=== PATIENT | male | born 1970 | race Hispanic/Latino ===

== ENCOUNTER 2017-01-05 00:13 | Emergency (ER) | payer MEDICAID ==
[2017-01-05 00:52] VITALS: BP 123/82; PULSE 78; RESP 17; TEMP 98; O2SAT 99
--- NOTE | 2017-01-05 00:54 | ED PDOC ---
Arrival/HPI <Bobo Romo - Last Filed: 01/05/17 01:37> <Gustavo Bravo - Last Filed: 01/05/17 05:31> - General Chief Complaint: Hip Pain Time Seen by Provider: 01/05/17 00:17 - History of Present Illness Narrative History of Present Illness (Text): 01/05/17 00:51 This patient is a 46yoM who states he is homeless, in and out of shelters, with supposed psych history, who is coming complaining of b/l hip pain that he's had since 2014. tangential speech. patient denies AV hallucinations or wish to hurt himself or others. States that "people have done very bad things to me and medications are poisoning me". is able to ambulate without problem and is requesting food. Denies fevers/chills, LOU, CP, SOB, abdominal pain, n/V/d, dysuria/freq/urg, or lower extremity pain/swelling. (Gustavo Bravo) Past Medical History <Bobo Romo - Last Filed: 01/05/17 01:37> - Provider Review Nursing Documentation Reviewed: Yes - Travel History Have you recently traveled outside [place] w/in the past 3 mons?: No - Past History Past History: No Previous - Infectious Disease Hx of Infectious Diseases: None - Psychiatric Hx Substance Use: No - Anesthesia Hx Anesthesia: No <Gustavo Bravo - Last Filed: 01/05/17 05:31> - Patient History Narrative Patient History: psych history; not discernable, likely bipolar disorder (Gustavo Bravo) Family/Social History - Physician Review Nursing Documentation Reviewed: Yes Family/Social History: No Known Family HX Smoking Status: Light Smoker < 10 Cigarettes Daily Hx Alcohol Use: No Hx Substance Use: No <Gustavo Bravo - Last Filed: 01/05/17 05:31> Allergies/Home Meds <Bobo Romo - Last Filed: 01/05/17 01:37> <Gustavo Bravo - Last Filed: 01/05/17 05:31> Allergies/Adverse Reactions: Allergies bee pollen Allergy (Verified 01/05/17 00:26) ANAPHYLAXIS bee venom protein (honey bee) Allergy (Verified 01/05/17 00:26) ANAPHYLAXIS Home Medications: Home Meds Medication Instructions Recorded Confirmed No Known Home Med 01/05/17 01/05/17 Review of Systems - Review of Systems Constitutional: Fatigue. absent: Weight Change Eyes: absent: Vision Changes, Photophobia ENT: absent: Hearing Changes, Tinnitus Respiratory: absent: SOB, Cough Cardiovascular: absent: Chest Pain, Palpitations Gastrointestinal: absent: Abdominal Pain, Stool Changes, Hematochezia Genitourinary Male: absent: Dysuria, Frequency Musculoskeletal: Arthralgias, Back Pain Skin: absent: Rash, Pruritis Neurological: absent: Headache, Dizziness Endocrine: absent: Diaphoresis Hemo/Lymphatic: absent: Adenopathy Psychiatric: absent: Anxiety <Gustavo Bravo - Last Filed: 01/05/17 05:31> Physical Exam Temperature: Afebrile Blood Pressure: Normal Pulse: Regular Respiratory Rate: Normal Appearance: Positive for: Well-Appearing Pain Distress: Mild Mental Status: Positive for: Alert and Oriented X 3 - Systems Exam Head: Present: Atraumatic Pupils: Present: PERRL Extroacular Muscles: Present: EOMI Conjunctiva: Present: Normal Mouth: Present: Moist Mucous Membranes Pharnyx: No: ERYTHEMA Neck: Present: Normal Range of Motion. No: Meningeal Signs Respiratory/Chest: Present: Clear to Auscultation, Good Air Exchange Cardiovascular: Present: Regular Rate and Rhythm, Normal S1, S2. No: Murmurs Abdomen: No: Tenderness, Distention Back: No: CVA Tenderness Upper Extremity: Present: Normal Inspection. No: Cyanosis, Edema Lower Extremity: Present: Normal Inspection. No: Edema Neurological: Present: GCS=15, CN II-XII Intact. No: Speech Normal (pressured ) Skin: Present: Warm Psychiatric: Present: Alert, Oriented x 3, Delusional. No: Normal Insight, Normal Affect, Normal Mood, Suicidal Ideation, Homicidal Ideation, Hallucinations, Intoxicated, Lethargic <Gustavo Bravo - Last Filed: 01/05/17 05:31> Vital Signs Temp Pulse Resp BP Pulse Ox 01/05/17 00:51 98.0 F 78 17 123/82 99 Medical Decision Making <Bobo Romo - Last Filed: 01/05/17 01:37> <Gustavo Bravo - Last Filed: 01/05/17 05:31> ED Course and Treatment: Impression: Pt seen and evaluated by medical observer. Pt presented for bilateral hip pain for 2 years. Aware and agree with HPI, clinical findings, plan, and management. Plan: -- XR Bilateral Hips -- Motrin - Reassess and disposition (Bobo Romo) 01/05/17 00:55 Ibuprofen 800mg PO Hip X-ray given food dispo and reassess 01/05/17 01:57 Hip X-Ray negative for any fracture 01/05/17 03:53 Patient is comfortably sleeping in bed 01/05/17 04:30 The patient is stable for discharge as per Dr. 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 MD/ has examined the patient and agrees with the treatment plan. <Bobo Romo - Last Filed: 01/05/17 01:37> Disposition/Present on Arrival <Bobo Romo - Last Filed: 01/05/17 01:37> - Present on Arrival Any Indicators Present on Arrival: No History of DVT/PE: No History of Uncontrolled Diabetes: No Urinary Catheter: No History of Decub. Ulcer: No History Surgical Site Infection Following: None - Disposition Have Diagnosis and Disposition been Completed?: Yes Disposition Time: 04:30 Patient Plan: Discharge <Gustavo Bravo - Last Filed: 01/05/17 05:31> - Disposition Diagnosis: Homelessness Disposition: HOME/ ROUTINE Patient Problems: Current Active Problems Problem Status Onset Homelessness Acute Condition: FAIR Additional Instructions: Please make sure to call [facility] [phone] for additional services that you need I have also included information regarding emergency group home and other social service manager for affordable housing. This form also includes places that serve food and has information on how to receive benefits. Thank you for allowing me to assist in your care. Forms: [employer] ([place])
--- NOTE | 2017-01-05 10:30 | RAD ---
PROCEDURE: Radiographs of the pelvis and bilateral hips HISTORY: hip pain COMPARISON: None. FINDINGS: BONES: Pelvis: Unremarkable. Right hip:Unremarkable. Left hip:Unremarkable. JOINTS: Right hip: Unremarkable. Left hip: Unremarkable. Sacroiliac Joints: Unremarkable. Pubic symphysis: Unremarkable. SOFT TISSUES: Normal. OTHER FINDINGS: None. IMPRESSION: Unremarkable radiographs of the hips and pelvis.
== END 2017-01-05 04:14 | disposition home or self-care (01) ==
LOC: ED 00:13
DX: Z59.0 Homelessness (principal)